=== PATIENT | female | born 1955 | race African-American/Black ===

== ENCOUNTER 2019-02-15 17:26 | Emergency (ER) | payer OTHER, MEDICAID ==
[~2019-02-15] VITALS: Ht 167.6 cm; Wt 81.6 kg
[2019-02-15 18:24] LABS: Urine Bacteria FEW /hpf (None Seen); Urine Blood TRACE /uL (Negative); Urine Mucus FEW (None Seen); Urine Specific Gravity 1.031 (1.001-1.035); Urine WBC 22 /hpf (0 - 5)
[2019-02-15 18:26] LABS: Basophils # (auto) 0.2 uL; Basophils % (auto) 1.5 % (0.0-2.0); Eosinophils # (auto) 0.1 uL; Eosinophils % (auto) 0.9 % (0.0-7.0); Hematocrit 31.5 % (36.0-46.0); Lymphocytes # (auto) 2.5 uL; Lymphocytes % (auto) 24.2 % (10.0-50.0); Mean Corpuscular Hemoglobin 20.6 pg (28.0-32.0); Mean Corpuscular Hgb Conc. 31.6 g/dL (32.0-36.0); Monocytes # (auto) 0.7 uL; Monocytes % (auto) 6.5 % (0.0-12.0); Neutrophils # (auto) 6.9 uL; Neutrophils % (auto) 66.9 % (37.0-80.0); Nucleated Red Blood Cells % 0.1 %; Platelet Count (auto) 483 10^3/uL (140-450); Red Blood Cells 4.84 10^6/uL (4.0-5.20); White Blood Cell 10.4 10^3/uL (4.4-10.8)
[2019-02-15 18:32] LABS: Alcohol, Urine < 3.0 mg/dL (0-5); Amphetamine Screen, Urine NEGATIVE (NEGATIVE); Barbiturate Scree,Urine NEGATIVE (NEGATIVE); Benzodiazephine Screen, Urine NEGATIVE (NEGATIVE); Cannabinoid Screen, Urine POSITIVE (NEGATIVE); Cocaine Screen, Urine NEGATIVE (NEGATIVE); Phencyclidine Screen, Urine NEGATIVE (NEGATIVE)
[2019-02-15 18:40] LABS: Opiate Scree,Urine NEGATIVE (NEGATIVE)
[2019-02-15 18:41] LABS: Alanine Aminotransferase 29 U/L (13-56); Albumin 3.6 g/dL (3.4-5.0); Anion Gap 9 (5-15); Aspartate Aminotransferase 40 U/L (15-37); BUN/Creatinine Ratio 13.6; Blood Alcohol < 3.0 mg/dL (0-5); Blood Urea Nitrogen 12 mg/dL (7-18); Calcium 7.9 mg/dL (8.5-10.1); Carbon Dioxide 26 mmol/L (21-32); Chloride 106 mmol/L (98-107); GFR African American 83 mL/min; GFR Non-African American 69 mL/min; Glucose 112 mg/dL (74-106); Potassium 3.4 mmol/L (3.5-5.1); Sodium 141 mmol/L (136-145)
[2019-02-15 18:43] LABS: Alkaline Phosphatase 78 U/L (45-117); Bilirubin, Total 0.6 mg/dL (0.2-1.0); Total Protein 7.8 g/dL (6.4-8.2)
[2019-02-15] MEDS ORDERED: LORazepam 2MG/ML-1ML VIAL IV ONE (19:30)
[2019-02-15] MEDS ORDERED: cefTRIAXone 1GM/50ML D5W 50 ML IV ONE (20:00)
[2019-02-15 20:12] LABS: INR 1.03 (0.9-1.15); Partial Thromboplastin Time 25.1 sec (23.64-32.05)
[2019-02-15 20:27] VITALS: BP 158/73
== END 2019-02-15 20:42 | disposition short-term general hospital (02) ==
LOC: ER 17:33
DX: I61.4 Nontraumatic intracerebral hemorrhage in cerebellum (principal); I61.5 Nontraumatic intracerebral hemorrhage, intraventricular; R41.82 Altered mental status, unspecified; Z88.6 Allergy status to analgesic agent; Z88.5 Allergy status to narcotic agent; Z88.8 Allergy status to other drugs, medicaments and biological substances; Z91.018 Allergy to other foods; Z98.84 Bariatric surgery status
CPT/HCPCS: 36415; 70450; 71045; 72125; 80053; 80307; 80320; 81001; 85025; 85610; 85730; 87086; 93005; 96374; 99291; J0696

== ENCOUNTER 2019-03-21 11:55 | Inpatient (IN) | payer OTHER, MEDICAID ==
[~2019-03-21] VITALS: Ht 162.6 cm; Wt 80.1 kg
[2019-03-21] MEDS ORDERED: TIZA4TAB9 PO (16:58)
[2019-03-21] MEDS ORDERED: HYDROmorphone HCL 2 MG/ML VL IM ONE (17:00)
[2019-03-21] MEDS ORDERED: ONDANSETRON HCL 4 MG/2 ML VIAL IM ONE (17:00)
[2019-03-21] MEDS ORDERED: HYDROmorphone HCL 2 MG/ML VL IV ONE (17:30)
[2019-03-21 17:42] LABS: Basophils # (auto) 0.1 uL; Eosinophils # (auto) 0.2 uL; Eosinophils % (auto) 2.2 % (0.0-7.0)
[2019-03-21 17:44] LABS: Basophils % (auto) 1.4 % (0.0-2.0); Hematocrit 39.1 % (36.0-46.0); Hemoglobin 12.7 g/dL (12.2-16.2); Lymphocytes # (auto) 2.8 uL; Lymphocytes % (auto) 32.8 % (10.0-50.0); Mean Corpuscular Hgb Conc. 32.6 g/dL (32.0-36.0); Mean Corpuscular Volume 73.4 fL (80.0-100.0); Monocytes # (auto) 0.4 uL; Monocytes % (auto) 4.5 % (0.0-12.0); Neutrophils % (auto) 59.1 % (37.0-80.0); Platelet Count (auto) 325 10^3/uL (140-450); Red Blood Cells 5.32 10^6/uL (4.0-5.20); White Blood Cell 8.4 10^3/uL (4.4-10.8)
[2019-03-21] MEDS ORDERED: ONDANSETRON HCL 4 MG/2 ML VIAL IV ONE (17:45)
[2019-03-21 17:56] LABS: Red Cell Distribution Width 29.1 % (11.8-14.3)
[2019-03-21 17:59] LABS: Albumin 3.8 g/dL (3.4-5.0); Anion Gap 9 (5-15); Blood Urea Nitrogen 10 mg/dL (7-18); Calcium 8.1 mg/dL (8.5-10.1); Carbon Dioxide 27 mmol/L (21-32); Chloride 105 mmol/L (98-107); Glucose 97 mg/dL (74-106); Sodium 141 mmol/L (136-145)
[2019-03-21] MEDS ORDERED: ONDANSETRON HCL 4 MG/2 ML VIAL IV PRN (18:00)
[2019-03-21] MEDS ORDERED: MORPHINE SULF INJ 2 MG/ML SYRINGE 1ML IV PRN ×3 (18:00→19:30)
[2019-03-21] MEDS ORDERED: LABETALOL HCL 5 MG/ML 4ML SYRINGE IV PRN (18:00)
[2019-03-21] MEDS ORDERED: traMADol HCL 50 MG TAB PO PRN (18:00)
[2019-03-21] MEDS ORDERED: NITROGLYCERIN 0.4 MG SL TAB SL PRN (18:00)
[2019-03-21 18:02] LABS: Alanine Aminotransferase 26 U/L (13-56); Aspartate Aminotransferase 19 U/L (15-37); BUN/Creatinine Ratio 12.2; GFR African American 91 mL/min; GFR Non-African American 75 mL/min
[2019-03-21 18:06] LABS: Alkaline Phosphatase 78 U/L (45-117); Bilirubin, Total 0.4 mg/dL (0.2-1.0); Total Protein 7.5 g/dL (6.4-8.2)
[2019-03-21] MEDS ORDERED: ZOLPIDEM TARTRATE 5 MG TAB PO PRN (19:00)
[2019-03-21 19:44] LABS: % Iron Saturation 11.6 % (15-50)
--- NOTE | 2019-03-21 20:30 | NUR ---
Telemetry admit from ER [facility] admitted to Telemetry unit. Patient oriented to Sola Bynum RN primary RN, unit, room, bed, and unit policies regarding patient care and visiting hours. Patient now on continuous telemetry monitoring, tele box #54 and telemetry reading on arrival to unit is SR. Patient on room air, weighed by bedscale and encouraged to call if they need something. All questions and concerns addressed, patient verbalized understanding. Note: Niece/caregiver at bedside. Fall and safety precautions in place. Call light within reach.
[2019-03-21] MEDS ORDERED: LORA0.5T12 PO (20:55)
--- NOTE | 2019-03-21 21:55 | NUR ---
HOSPITALIST Paged solutions operator hospitalist regarding pain medication. Awaiting call back
[2019-03-21] MEDS ORDERED: ZANAFLEX 4 MG PO SCH (22:00)
[2019-03-21] MEDS ORDERED: DULoxetine HCL 30 MG CAP PO SCH (22:00)
--- NOTE | 2019-03-21 22:00 | NUR ---
HOSPITALIST Received call from hospitalist on-call, Dr. Nathan. New orders received, read back and verified. Will input and carry out
[2019-03-21] MEDS: HYDROcodone-ACET 5/325MG TAB PO PRN (22:30)
[2019-03-22] MEDS ORDERED: LOSA-69 PO (01:16)
[2019-03-22] MEDS ORDERED: HYOS0.1269 (01:16)
[2019-03-22] MEDS ORDERED: CYA100I IM (01:16)
[2019-03-22] MEDS ORDERED: PROBCAP38 OR (01:16)
[2019-03-22] MEDS ORDERED: ROPI1TAB2 PO (01:16)
[2019-03-22] MEDS ORDERED: LEVO150T68 PO (01:16)
[2019-03-22] MEDS ORDERED: OXYB10GE PO (01:16)
[2019-03-22] MEDS ORDERED: CALC0.25 PO (01:16)
[2019-03-22] MEDS ORDERED: AMLO5TAB15 PO (01:16)
[2019-03-22] MEDS ORDERED: TRAZ-181 PO (01:16)
[2019-03-22] MEDS ORDERED: DULO60CA PO (01:16)
[2019-03-22 05:00] VITALS: BP 129/97
--- NOTE | 2019-03-22 07:35 | NUR ---
Opening Note Received report from hotel night auditor RN. Patient is awake, alert and oriented x4. No signs or symptoms of distress noted at this time. Patient is on room air, respirations even and unlabored. Patient states headache 8/10 and is requesting medication. Will medicate per orders. Reviewed plan of care with patient, patient verbalized understanding. Bed in low and locked position, call light within reach. Will continue to monitor Q1 hour and PRN.
--- NOTE | 2019-03-22 08:16 | NUR ---
Dr. Morrison at bedside Discussing plan of care with patient. Will continue to monitor Q1 hour and PRN.
[2019-03-22] MEDS: HYDROcodone-ACET 5/325MG TAB PO PRN (08:20)
--- NOTE | 2019-03-22 08:59 | NUR ---
Called [facility] Regarding new prescription Dr. Morrison ordered for patient, per pharmacy one bottle is in stock.
[2019-03-22 09:00] VITALS: BP 133/89
[2019-03-22] MEDS: FAMOTIDINE 20 MG TAB PO SCH (09:52)
[2019-03-22] MEDS: LISINOPRIL 10 MG TAB PO SCH (09:53)
[2019-03-22] MEDS: amLODIPine BESYLATE 5 MG TAB PO SCH (09:53)
[2019-03-22] MEDS ORDERED: DULoxetine HCL 30 MG CAP PO SCH (10:00)
--- NOTE | 2019-03-22 10:24 | NUR ---
Prescription taken down to [facility] Prescription taken down to [facility] pharmacy by this RN. Prescription to be filled by [facility] pharmacy and sent to inpatient pharmacy as a POM per Dr. Morrison. Will continue to monitor Q1 hour and PRN.
--- NOTE | 2019-03-22 11:45 | NUR ---
Dr. Lisa Ricks at bedside Discussing plan of care with patient and this RN. New orders received to discontinue Mico 5/325 and Tramadol. New order for Mico 7.5 Q6 PRN. Will implement new orders. Will continue to monitor Q1 hour and PRN.
[2019-03-22 13:00] VITALS: BP 108/71
--- NOTE | 2019-03-22 16:00 | NUR ---
Patient medication taken down to pharmacy POM band placed on patient on chart. Will continue to monitor Q1 hour and PRN.
[2019-03-22] MEDS: HYDROcodone-ACET 7.5/325MG TAB PO PRN (16:49)
[2019-03-22 17:00] VITALS: BP 111/64
--- NOTE | 2019-03-22 19:07 | NUR ---
Closing Note Report given to shift production supervisor RN. No signs or symptoms of distress noted at this time.
--- NOTE | 2019-03-22 19:39 | NUR ---
Opening Shift Note Assumed care of patient, awake and alert. No S/S of distress/SOB or pain. Instructed on POC and to call for assist PRN, will continue to monitor for changes Q1hr and PRN.
[2019-03-22 22:00] VITALS: BP 100/60
[2019-03-22] MEDS ORDERED: TIZANIDINE 2 MG PO SCH (22:00)
[2019-03-23] MEDS: HYDROcodone-ACET 7.5/325MG TAB PO PRN (02:30)
[2019-03-23 05:10] VITALS: BP 104/64
--- NOTE | 2019-03-23 07:30 | NUR ---
Opening Note Received report from bet taker RN. Patient is awake, alert and oriented x4. No signs or symptoms of distress noted at this time. Patient is on room air, respirations even and unlabored. Patient denies pain at this time. Reviewed plan of care with patient, patient verbalized understanding. Bed in low and locked position, call light within reach. Will continue to monitor Q1 hour and PRN.
--- NOTE | 2019-03-23 08:40 | NUR ---
Dr. Morrison at bedside Discussing plan of care with patient and this RN. No new orders received. Will continue to monitor Q1 hour and PRN.
[2019-03-23 08:52] VITALS: BP 123/70
[2019-03-23] MEDS: amLODIPine BESYLATE 5 MG TAB PO SCH (09:59)
[2019-03-23] MEDS: LISINOPRIL 10 MG TAB PO SCH (10:00)
[2019-03-23] MEDS: FAMOTIDINE 20 MG TAB PO SCH (10:00)
--- NOTE | 2019-03-23 10:15 | NUR ---
PATIENT ROUNDS PATIENT ROUNDS DONE. PATIENT IS SITTING UP IN CHAIR. RESPIRATIONS ARE EVEN AND UNLABORED. DENIES PAIN AT THIS TIME. WILL CONTINUE TO MONITOR. Signed: 03/23/19 at 1036 by MINISTERIO RODRIGUEZ <Co-Signature Required> Co-Signed: 03/23/19 at 1036 by ANDREW JONES RN RN
--- NOTE | 2019-03-23 10:28 | NUR ---
Dr. Lisa Ricks at bedside Discussing plan of care with patient. Patient to discharge home today. Will continue to monitor Q1 hour and PRN.
[2019-03-23 11:11] VITALS: BP 123/70
[2019-03-23 13:00] VITALS: BP 118/83
--- NOTE | 2019-03-23 14:41 | NUR ---
Discharge Discharge instructions given as ordered. Encourage to follow up with PMD as instructed. All questions and concerns addressed. Patient verbalized understanding. Medication reconciliation form completed and copy given to patient. Home medications held in Pharmacy returned to patient, and needed vaccines given. IV removed with catheter intact, pressure dressing applied. awake overnight monitor removed and sent back to ICU. Patient ambulated to private vehicle with all personal belongings. No signs of distress noted at this time.
== END 2019-03-23 14:40 | disposition home or self-care (01) | DRG 103 ==
LOC: ER 11:55 → TELE 11:56 → TELE-WESTW 20:03
PROVIDERS: ADMIT Nurse Practitioner Acute Care; ATTEND Family Medicine
DX: G44.009 Cluster headache syndrome, unspecified, not intractable (principal); G25.81 Restless legs syndrome; G47.00 Insomnia, unspecified; M79.7 Fibromyalgia; I10 Essential (primary) hypertension; F32.9 Major depressive disorder, single episode, unspecified; F17.200 Nicotine dependence, unspecified, uncomplicated; F41.9 Anxiety disorder, unspecified; I25.2 Old myocardial infarction; Z82.49 Family history of ischemic heart disease and other diseases of the circulatory system; Z86.73 Personal history of transient ischemic attack (TIA), and cerebral infarction without residual deficits; Z98.84 Bariatric surgery status; Z90.49 Acquired absence of other specified parts of digestive tract; Z88.6 Allergy status to analgesic agent; Z88.5 Allergy status to narcotic agent; Z88.8 Allergy status to other drugs, medicaments and biological substances
CPT/HCPCS: 36415; 70450; 80053; 82728; 83540; 83550; 84484; 85025; 85652; 96372; 96374; 96375; G0378; J2405